=== PATIENT | female | born 1980 ===

== ENCOUNTER 2020-07-14 21:07 | Emergency (ER) | payer MEDICAID, OTHER ==
[2020-07-14] MEDS ORDERED: Sodium Chloride 0.9% 10 ML Syringe FLUSH PRN (22:10)
--- NOTE | 2020-07-14 22:12 | EDM.PDOC ---
ED HPI GENERAL MEDICAL PROBLEM - General Chief Complaint: Respiratory Problem Stated Complaint: CHEST IS TIGHT, STOMACH, ALL THE BACK Time Seen by Provider: 07/14/20 22:07 Source of Information: Reports: Patient History Limitations: Reports: No Limitations - History of Present Illness INITIAL COMMENTS - FREE TEXT/NARRATIVE: Patient comes emergency department today on her own with complaints of shortness of breath. HPI is difficult to obtain from the patient as she has been drinking alcohol all day she reports smoking weed as well as using methamphetamine throughout the day. She relates that she has been short of breath for 5 years. She is no more short of breath than she typically is. She has no pain in her chest. No fever no chills. No cough or congestion. No abdominal pain nausea or vomiting. She has not been exposed to anyone with Covid. She has no loss of taste or smell. She offers no other complaints. - Related Data Allergies Allergy/AdvReac Type Severity Reaction Status Date / Time No Known Allergies Allergy Verified 07/14/20 22:08 Home Meds: Home Meds . [No Known Home Meds] 07/14/20 [History] ED ROS GENERAL - Review of Systems Review Of Systems: Comprehensive ROS is negative, except as noted in HPI. ED EXAM, GENERAL - Physical Exam Exam: See Below Free Text/Narrative:: She is resting sleeping with regular respirations not labored when I enter the room. She is drowsy able to hold up her head and maintain her airway. She falls to sleep during the HPI taking. Exam Limited By: Intoxication General Appearance: Alert, WD/WN Eye Exam: Bilateral Eye: EOMI, Proptosis Ears: Normal External Exam Nose: Normal Inspection, Normal Mucosa Throat/Mouth: Normal Inspection, Normal Lips, Normal Teeth, Normal Oropharynx, Normal Voice, No Airway Compromise Head: Atraumatic, Normocephalic Neck: Normal Inspection, Supple, Non-Tender, Full Range of Motion Respiratory/Chest: No Respiratory Distress, Lungs Clear, Normal Breath Sounds, No Accessory Muscle Use, Chest Non-Tender Cardiovascular: Normal Peripheral Pulses, Regular Rate, Rhythm Peripheral Pulses: 2+: Radial (L), Radial (R), Posterior Tibial (L), Posterior Tibial (R), Dorsalis Pedis (L), Dorsalis Pedis (R) GI/Abdominal: Normal Bowel Sounds, Soft, Non-Tender (Female) Exam: Deferred Rectal (Female) Exam: Deferred Back Exam: Normal Inspection, Full Range of Motion Extremities: Normal Inspection, Normal Range of Motion, Non-Tender, No Pedal Edema, Normal Capillary Refill Neurological: Alert (to verbal. ), Oriented, CN II-XII Intact, No Motor/Sensory Deficits Psychiatric: Flat Affect Skin Exam: Warm, Dry, Intact, Normal Color, No Rash Course - Vital Signs Last Recorded V/S: Last Vital Signs Temp 97.2 F 07/14/20 21:31 Pulse 98 07/14/20 21:31 Resp 16 07/14/20 21:31 BP 133/91 H 07/14/20 21:31 Pulse Ox 98 07/14/20 21:31 - Orders/Labs/Meds Orders: Active Orders 24 hr Category Date Time Status DRUG SCREEN URINE BIORAD [URCHEM] Stat Lab 07/14/20 22:10 Ordered UA RFX BORIS AND CULT IF INDIC [URIN] Stat Lab 07/14/20 22:10 Ordered Peripheral IV Insertion Adult [OM.PC] Stat Oth 07/14/20 22:10 Ordered Labs: Laboratory Tests 07/14/20 07/14/20 Range/Units 22:19 22:19 WBC 5.0 (5.0-10.0) 10^3/uL RBC 4.29 (4.2-5.4) 10^6/uL Hgb 14.2 (12.0-16.0) g/dL Hct 41.1 (37.0-47.0) % MCV 95.8 (80-100) fL MCH 33.1 (27.0-34.0) pg MCHC 34.5 (33.0-35.0) g/dL Plt Count 309 (150-450) 10^3/uL Neut % (Auto) 46.9 (42.2-75.2) % Lymph % (Auto) 41.6 (20.5-50.1) % [place] % (Auto) 8.9 H (2-8) % Eos % (Auto) 1.8 (1.0-3.0) % Baso % (Auto) 0.8 (0.0-1.0) % Sodium 144 (136-145) mmol/L Potassium 3.6 (3.5-5.1) mmol/L Chloride 107 (98-107) mmol/L Carbon Dioxide 24 (21-32) mmol/L Anion Gap 16.6 H (7-13) mEq/L BUN 3 L (7-18) mg/dL Creatinine 0.90 (0.55-1.02) mg/dL Est Cr Clr Drug Dosing 71.75 mL/min Estimated GFR (MDRD) > 60 BUN/Creatinine Ratio 3.3 (No establ ref range) Glucose 94 (70-99) mg/dL Calcium 8.1 L (8.5-10.1) mg/dL Total Bilirubin 0.3 (0.2-1.0) mg/dL AST 22 (15-37) U/L ALT 36 (14-59) U/L Alkaline Phosphatase 118 H (46-116) U/L Troponin I < 0.017 (0.000-0.056) ng/mL Total Protein 7.3 (6.4-8.2) g/dL Albumin 3.5 (3.4-5.0) g/dL Globulin 3.8 Albumin/Globulin Ratio 0.9 Ethyl Alcohol 114 (0) mg/dL Meds: Medications Discontinued Medications Generic Name Dose Route Start Last Admin Trade Name Freq PRN Reason Stop Dose Admin Lactated Ringer's 1,000 mls @ 1,000 mls/hr 07/14/20 22:25 07/14/20 22:32 Ringers, Lactated IV 07/14/20 23:24 1,000 mls/hr .BOLUS ONE Administration Sodium Chloride 10 ml 07/14/20 22:10 07/14/20 22:22 Sodium Chloride 0.9% 10 Ml Syringe FLUSH 10 ml ASDIRECTED PRN Administration Keep Vein Open - Re-Assessments/Exams Free Text/Narrative Re-Assessment/Exam: Laboratory evaluation with a WBC of 5.0, hemoglobin 14.2, platelet 309. CMP with a BUN of 3 anion gap of 16.6, creatinine normal at 0.9 Times are unremarkable. Troponin less than 0.017. Blood alcohol 114. The patient was in no respiratory distress upon arrival and she had normal lung sounds that were clear and equal bilaterally. She was given a liter of fluid in the emergency department. She said for the next couple of hours. When she woke up she was without any complaints. She had no shortness of breath no chest pain. We will discharge her to detox at this time and she has no one to come get her. I do not think she needs any other intervention as her symptoms have resolved and this could be related to her alcohol usage or her methamphetamine usage or her marijuana usage but I am not finding any acute pathology that needs any further intervention at this time. Discharge directions as below are explained to the patient she was comfortable with this plan and her questions were answered. Departure - Departure Time of Disposition: 00:19 Disposition: Home, Self-Care 01 Clinical Impression: Shortness of breath Acute alcohol intoxication Qualifiers: Complication of substance-induced condition: uncomplicated Qualified Code(s): F10.920 - Alcohol use, unspecified with intoxication, uncomplicated - Discharge Information Instructions: Shortness of Breath, Adult, [id number], Alcohol Intoxication, [id number] Forms: ED Department Discharge Additional Instructions: Abstain from alcohol and recreational drug usage. Drink plenty of fluids over the next few days especially electrolyte containing materials like gatorade and or powerade. Eat regular meals. Return to the ED if new or worsening symptoms. To detox with PD. Sepsis Event Note (ED) - Evaluation Sepsis Screening Result: No Definite Risk - Focused Exam Vital Signs: Vital Signs Temp Pulse Resp BP Pulse Ox 07/14/20 21:31 97.2 F 98 16 133/91 H 98 - My Orders Last 24 Hours: My Active Orders 07/14/20 22:10 DRUG SCREEN URINE BIORAD [URCHEM] Stat UA RFX BORIS AND CULT IF INDIC [URIN] Stat Peripheral IV Insertion Adult [OM.PC] Stat - Assessment/Plan Last 24 Hours: My Active Orders 07/14/20 22:10 DRUG SCREEN URINE BIORAD [URCHEM] Stat UA RFX BORIS AND CULT IF INDIC [URIN] Stat Peripheral IV Insertion Adult [OM.PC] Stat
[2020-07-14] MEDS ORDERED: Lactated Ringers 1,000 ML IV ONE (22:25)
[2020-07-14 22:50] LABS: CHLORIDE,CL 107 mmol/L (98-107); SODIUM,NA 144 mmol/L (136-145)
[2020-07-14 22:54] LABS: ANION GAP 16.6 mEq/L (7-13)
== END 2020-07-15 00:36 | disposition home or self-care (01) ==
LOC: DL.ED 21:07
DX: R06.02 Shortness of breath (principal); F10.120 Alcohol abuse with intoxication, uncomplicated; Y90.5 Blood alcohol level of 100-119 mg/100 ml
CPT/HCPCS: 36415; 80053; 80307; 84484; 85025; 93005; 99283; 99285-25; J7120